=== PATIENT | female | born 1985 | race Asian ===

== ENCOUNTER → 2016-05-24 | Outpatient (CLI) | payer OTHER ==
[~2016-05-24] MED LIST: ALPR0.5T PO; ESCI20TA10 PO; GADOBUTROL 7.5 MMOL/7.5 ML VIAL IV ONE; LORA10TA65 PO
--- NOTE | 2016-05-24 10:40 | KCIC ---
PROCEDURE MRI brain without and with contrast. HISTORY Possible seizures, loss of consciousness TECHNIQUE Multiplanar, multi sequential pre and post contrast MR imaging was performed of the brain. Contrast: 4.5 cc Gadavist. COMPARISON None FINDINGS Ventricles, sulci, cisterns are within normal limits in size and configuration. There is no intra-axial mass effect, midline shift, extra-axial fluid collection. There is no nodular parenchymal or leptomeningeal enhancement. There is a left frontal developmental venous anomaly extending to the cortical surface. There are a few tiny foci of nonenhancing T2 and FLAIR hyperintense signal abnormality of the right frontal deep white matter. Hippocampal formations are symmetric in size and signal characteristics. No significant alvarado matter heterotopia or cortical dysplasia is identified. There is preservation of the major arterial intracranial flow voids at the skull base. Paranasal sinuses are overall aerated, non pneumatization of the frontal sinus. Mastoid air cells are aerated. Cerebellar tonsils are normal location. There is preservation of marrow signal of the clivus. There is no significant abnormality of the pineal gland or pituitary gland. There is no restricted diffusion suggestive of recent infarct or cytotoxic edema. IMPRESSION Other than a few tiny foci of T2 and FLAIR hyperintense signal of the right frontal deep white matter which may be seen with foci of nonspecific gliosis, there is no significant intracranial abnormality. Incidental note is made of a left frontal developmental venous anomaly extending to the cortical surface. Electronically signed by: Evens Wyman MD (May 24, 2016 10:39:11)
== END | disposition home or self-care (01) ==
LOC: KCIC MRI 09:19
PROVIDERS: ATTEND Psychiatry & Neurology Neurology with Special Qualifications in Child Neurology
DX: R55 Syncope and collapse (principal); Z86.69 Personal history of other diseases of the nervous system and sense organs
CPT/HCPCS: 70553; A9585

== ENCOUNTER 2016-06-01 09:27 | Day surgery (SDC) | payer OTHER ==
[~2016-06-01] VITALS: Ht 147.3 cm; Wt 47.6 kg
[~2016-06-01 09:27] MED LIST changes: +ACETAMINOPHEN INTRAVENOUS 100 ML IV ONE; +BUPIVACAINE-EPI 0.25%-1:200000 50 ML VIAL. ONE; +CEFAZOLIN 2GM PREMIX 50 ML IV ONE; +DEXAMETHASONE SOD PHOS 20 MG/5 ML VIAL. ONE; +FENTANYL PF 100 MCG/2 ML VIAL. IV PRN; +FENTANYL PF 100 MCG/2 ML VIAL. ONE; -GADOBUTROL 7.5 MMOL/7.5 ML VIAL IV ONE; +HYDROMORPHONE 2 MG/ML VIAL. IV PRN; +IV RINGERS,LACTATED 1000ML 1,000 ML IV SCH; +LAMO25TA PO; +LIDOCAINE 1% 1 ML SYRINGE. ID PRN; +LIDOCAINE 2% 100 MG/5 ML DISP.SYRIN. ONE; +MIDAZOLAM HCL 2 MG/2 ML VIAL. ONE; +MORPHINE SULFATE 2 MG/ML DISP.SYRIN. IV PRN; +ONDANSETRON PF 4 MG/2 ML VIAL. IV PRN; +ONDANSETRON PF 4 MG/2 ML VIAL. ONE; +PROAIR HFA8.5 GM INH; +PROCHLORPERAZINE 10 MG/2 ML VIAL. IV PRN; +PROPOFOL 20 ML IV ONE; +SEVOFLURANE 61 TO 120 MINUTES. IH ONE
[2016-06-01] MEDS ORDERED: SCOPOLAMINE 1.5MG PATCH. TD ONE (09:41)
[2016-06-01 09:51] LABS: NEG OBC UR NEG; POS OBC UR POS
[2016-06-01] MEDS ORDERED: SCOPOLAMINE 1.5MG PATCH. TD SCH (10:00)
[2016-06-01] MEDS ORDERED: BUPIVACAINE-EPI 0.25%-1:200000 50 ML VIAL. IJ ONE (10:21)
--- NOTE | 2016-06-01 10:46 | PDOC ---
BRIEF OPERATIVE NOTE Date: Jun 01, 2016 Pre-Op Diagnosis Right flank mass Post-Op Diagnosis Same Procedure Performed Excision of right flank mass Surgeon Ash Anesthesia Type: General Blood Loss 5ml Specimens Obtained Right flank mass Findings as above Complications None VALARIE PABLO MD Jun 01, 2016 10:46
--- NOTE | 2016-06-01 10:47 | DISCH ---
DISCHARGE INSTRUCTIONS Condition on Discharge Condition on Discharge: Stable Activity After Discharge Activity Instructions for Disc: Activity as tolerated Diet after Discharge Diet after Discharge: Regular Wound Incision Care Other wound/incision instructi: May shower in 24 hours Contacting the after DC Call your doctor for: If your condition worsens Follow-Up Follow up with: Dr Pablo in 2 weeks VALARIE PABLO MD Jun 01, 2016 10:47
[2016-06-01] MEDS ORDERED: HYDR-971 PO (11:12)
[2016-06-01] MEDS ORDERED: zofran (11:13)
[2016-06-01 11:50] VITALS: BP 110/81
--- NOTE | 2016-06-01 15:04 | OP ---
DATE OF SURGERY: 06/01/2016 PREOPERATIVE DIAGNOSIS: Right flank mass. POSTOPERATIVE DIAGNOSIS: Right flank mass. PROCEDURE: Excision of mass, right flank. SURGEON: Jorge Pablo MD INDICATIONS: The patient is a 31-year-old female who is complaining of a painful mass in the right flank. MRI showed a deep subcutaneous mass over the area where she is tender. Procedure of excision was explained to the patient in detail. Risks and benefits were also discussed including bleeding, infection. Alternatives of this procedure were also discussed with the patient who seemed to understand and gave verbal and written consent to have the procedure performed. DESCRIPTION OF PROCEDURE: The patient was taken to the operating room and placed in the supine position. General anesthesia was initiated. Once she was asleep and intubated, she was turned on the left lateral decubitus positioning. Her right flank was prepped and draped in the usual sterile fashion using ChloraPrep. An area over the mass was injected with 0.25% Marcaine with epinephrine. Incision was made with 15 blade scalpel. This was carried down through the subcutaneous tissue with electrocautery for hemostasis down to the mass. This mass was sharply excised with electrocautery including part of the deep fascia. The mass was approximately 6 x 6 cm and sent for pathology. The wound was then closed in 2 layers, deep layer with running 3-0 Vicryl and the skin was reapproximated with 4-0 subcuticular Monocryl. Mastisol, Steri-Strips, 4 x 4's and Medipore tape were applied as dressings. The patient was awakened, extubated in the operating room, taken to recovery in stable condition. All sponge and instrument counts listed as correct. ESTIMATED BLOOD LOSS: 5 mL. JORGE PABLO MD DR: MUSA/sobia JOB#: [id number] / [id number] WILLIAM Gautam MD
--- NOTE | 2016-06-05 16:56 | PATHOLOGY ---
PATHOLOGY REPORT * * * * * * * * FINAL DIAGNOSIS: Fibroadipose tissue, right back mass: - Reactive fibrosis with chronic inflammation and admixed histiocytes. See comment. COMMENT: Sections of the right back mass reveal fibroadipose tissue showing extensive fibrosis and chronic inflammation with admixed large cells having abundant foamy cytoplasm. There are single and aggregated mature adipocytes present within the fibroinflammatory process. Immunoperoxidase stains for CD68 and S-100 are obtained and yield the following results: CD68: large cells with foamy cytoplasm within inflammatory infiltrate positive S-100: large cells with foamy cytoplasm within inflammatory infiltrate positive The large cells with foamy cytoplasm immunophenotypically are histiocytes. The constellation of findings is consistent with fat necrosis. The case is also examined by Dr. Sancho Yu, who concurs with the diagnosis. (JPM:; d/t: 06/05/16) Special Stains Performed: Immunoperoxidase stains for CD68 and S-100. REPORT ELECTRONICALLY SIGNED BY: Cade Allison M.D. DATE/TIME: 06/05/2016 16:56 * * * * * * * * GROSS PATHOLOGY: Received in formalin labeled "Carla Xavier, right back mass," is a segment of lobulated fibroadipose tissue measuring 5.7 x 4.3 x 3.1 cm in maximum dimensions. Sectioning reveals pink-riggins to yellow-riggins cut surfaces. [employer] tissue is submitted in cassette A1. (CAA; 06/01/2016) INITIAL CPT CODE(S): A; 94598, 59127, 35767 Professional services performed by [facility] at [address] [address] Technical services performed by [facility] at [address] [place] [address], [place] [address]. SPECIMEN(S) RECEIVED: A.Right back mass CLINICAL HISTORY: Right back mass PATIENT: CARLA XAVIER /AGE: 1103/16/1985 (Age: 31) PATIENT #: [id number] ALT CASE #: SPECIMEN COLLECTION DATE: 06/01/2016 SPECIMEN RECEIVED DATE: 06/01/2016 [facility] - [id number] [place] [address] - PHONE: [phone] * * * END OF REPORT * * *
== END 2016-06-01 12:14 | disposition home or self-care (01) ==
LOC: SURG 09:27
PROVIDERS: ATTEND Surgery
DX: R22.2 Localized swelling, mass and lump, trunk (principal); J45.909 Unspecified asthma, uncomplicated; M19.90 Unspecified osteoarthritis, unspecified site; F41.9 Anxiety disorder, unspecified; F17.200 Nicotine dependence, unspecified, uncomplicated; Z98.51 Tubal ligation status
CPT/HCPCS: 21933; 81025; J0131; J0690; J1100; J2250; J2405; J2704; J3010